=== PATIENT | male | born 1965 | race Caucasian/White ===

== ENCOUNTER 2024-04-01 00:51 | Emergency (ER) | payer MEDICARE, OTHER ==
[2024-04-01] MEDS ORDERED: EPINEPHrine 1 MG/10 ML Abboject SYRINGE ONE (00:53)
[2024-04-01] MEDS ORDERED: Dextrose 50% Abboject 50 ML SYRINGE ONE (00:53)
[2024-04-01] MEDS ORDERED: Amiodarone 150 MG/3 ML VIAL ONE (00:53)
[2024-04-01] MEDS ORDERED: Calcium Chloride 1 GM/10 ML Abboject SYRINGE ONE (00:53)
[2024-04-01] MEDS ORDERED: Magnesium 5 GM/10 ML Abboject SYRINGE ONE (00:53)
[2024-04-01] MEDS ORDERED: Sodium Bicarb 50 MEQ/50 ML Abboject 8.4% SYRINGE ONE (00:53)
[2024-04-01] MEDS ORDERED: Nitroglycerin 50 MG/250 ML BOT 0 ML ONE (00:55)
[2024-04-01] MEDS ORDERED: Adenosine 6 mg (2 mL) VIAL ONE (00:55)
[2024-04-01] MEDS ORDERED: Atropine Sulfate 1 mg/1 ml Vial ONE (00:55)
[2024-04-01] MEDS ORDERED: Heparin 10,000 UNITS/ 10 ML VIAL ONE (00:55)
== END 2024-04-01 01:19 | disposition expired ==
LOC: ERS 00:51
DX: I46.9 Cardiac arrest, cause unspecified (principal); F17.210 Nicotine dependence, cigarettes, uncomplicated; I25.10 Atherosclerotic heart disease of native coronary artery without angina pectoris; Z95.810 Presence of automatic (implantable) cardiac defibrillator; Z95.5 Presence of coronary angioplasty implant and graft
CPT/HCPCS: J0171; J0282; J3475; J7999; J0153; J0461; J1644